=== PATIENT | female | born 1985 | race Caucasian/White ===

== ENCOUNTER 2022-04-13 10:15 | Emergency (ER) | payer SELFPAY ==
[~2022-04-13] VITALS: Ht 157.5 cm; Wt 58.5 kg
[2022-04-13 10:29] VITALS: BP 123/52
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
--- NOTE | 2022-04-13 11:06 | NUR ---
PATIENT LEFT WITHOUT BEING SEEN BY DR. MCKINLEY. NO FURTHER CARE PROVIDED FOR PATIENT.
--- NOTE | 2022-04-13 11:12 | NUR ---
PA MCKINLEY AT PT SIDE FOR EVAL
--- NOTE | 2022-04-13 11:44 | NUR ---
Placed pt's right arm in a sling, adjusted to pt's comfort.
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
== END 2022-04-13 12:12 | disposition home or self-care (01) ==
LOC: MED 10:15
DX: S16.1XXA Strain of muscle, fascia and tendon at neck level, initial encounter (principal); R03.0 Elevated blood-pressure reading, without diagnosis of hypertension; V49.88XA Car occupant (driver) (passenger) injured in other specified transport accidents, initial encounter; Y93.89 Activity, other specified; Y92.89 Other specified places as the place of occurrence of the external cause; Y99.8 Other external cause status
CPT/HCPCS: 99282